=== PATIENT | male | born 1970 | race African-American/Black ===

== ENCOUNTER 2016-12-17 10:30 | Emergency (ER) | payer OTHER ==
[~2016-12-17] VITALS: Ht 175.3 cm; Wt 76.2 kg
[2016-12-17 11:29] LABS: HEMATOCRIT 44.8 % (38.0-50.0); MCH 28.8 PG (29.0-34.0); MCHC 33.9 G/DL (30.0-36.0); MEAN PLAT.VOLUME 9.9 uM^3 (9.0-12.4); PLATELET COUNT 191 K/uL (156-360); RBC DIS.WIDTH-CV 12.9 % (11.8-14.6); RED BLOOD COUNT 5.27 M/uL (4.00-5.50); WHITE BLOOD COUNT 12.7 K/uL (4.1-10.2)
[2016-12-17 11:38] LABS: CHLORIDE 99 mEq/L (99-109); POTASSIUM 4.1 mEq/L (3.7-5.4); SODIUM 136 mEq/L (136-147)
[2016-12-17 11:40] LABS: GLUCOSE 111 mg/dL (70-99)
[2016-12-17 11:42] LABS: ANION GAP 10 MEQ/L (2-14)
[2016-12-17 11:44] LABS: GFR ESTIMATE (CALCULATED) > 59 mL/min/
[2016-12-17 11:45] LABS: UREA NITROGEN (BUN) 16 mg/dL (9-23)
[2016-12-17] MEDS ORDERED: BACTRIM,SEPT1 TABLET PO (13:55)
[2016-12-17 14:13] VITALS: BP 131/89
== END 2016-12-17 14:16 | disposition home or self-care (01) ==
LOC: EME 10:30
PROVIDERS: Physician Assistant Medical
PROC: 0H9LXZZ Drainage of Left Lower Leg Skin, External Approach (ICD-10-PCS; principal; 2016-12-17)
DX: L02.416 Cutaneous abscess of left lower limb (principal); I10 Essential (primary) hypertension; F17.200 Nicotine dependence, unspecified, uncomplicated
CPT/HCPCS: 73701; 80048; 83605; 85027; 87040; 87070; 87075; 87076; 87205; 93971; 99281; 99285; J1885; J7030